=== PATIENT | female | born 1990 | race Caucasian/White ===

== ENCOUNTER 2021-04-30 17:17 | Emergency (ER) | payer MEDICAID ==
[~2021-04-30] VITALS: Ht 170.2 cm; Wt 122.0 kg
[~2021-04-30 17:17] MED LIST: IBUP-1984 PO
[2021-04-30 17:29] VITALS: BP 163/112
[2021-04-30 18:04] LABS: CLARITY,URINE CLOUDY (Clear); COLOR,URINE YELLOW (Yellow); GLUCOSE, URINE NEGATIVE (Neg); KETONES,URINE 40 mg/dl (Neg); LEUKOCYTE ESTERASE ,URINE SMALL (Neg); NITRITES, URINE NEGATIVE (Neg); OCCULT BLOOD,URINE LARGE (Neg); PROTEIN,URINE TRACE mg/dl (Neg); UROBILINOGEN,URINE 0.2 E.U/dL (0.2-1.0)
[2021-04-30 18:04] LABS: BASOPHILS # (AUTO) 0.1 X10'3 (0-0.2); BASOPHILS % (AUTO) 0.5 % (0-1); EOSINOPHILS # (AUTO) 0.4 X10'3 (0-0.9); HEMATOCRIT 41.2 % (35.0-45.0); HEMOGLOBIN 13.2 g/dl (12.0-16.0); LYMPHOCYTES % (AUTO) 27.3 % (21-51); MEAN CORPUSCULAR HEMOGLOBIN 26.4 PG (27.0-31.0); MEAN CORPUSCULAR HGB CONC 32.2 g/dL (33.0-36.5); MEAN CORPUSCULAR VOLUME 81.9 FL (78-98); MEAN PLATELET VOLUME 8.5 FL (7.4-10.4); MONOCYTES # (AUTO) 0.9 X10'3 (0-0.9); MONOCYTES % (AUTO) 6.5 % (2-12); NEUTROPHILS # (AUTO) 9.2 X10'3 (1.8-7.7); NEUTROPHILS % (AUTO) 62.7 % (42-75); PLATELET COUNT 353 X10'3 (140-440); RED BLOOD COUNT 5.02 X10'6 (4.20-5.60); RED CELL DISTRIBUTION WIDTH 15.1 % (11.5-14.5); WHITE BLOOD COUNT 14.6 X10'3 (4.5-11.0)
[2021-04-30 18:08] LABS: UA COLLECTION TYPE CLN CATCH MIDSTREAM; URINE HCG NEGATIVE (NEG)
[2021-04-30 18:17] LABS: ALANINE AMINOTRANSFERASE 104 U/L (12-78); ALBUMIN 4.4 G/DL (3.4-5.0); ALBUMIN/GLOBULIN RATIO 1.1 (1.1-1.5); ALKALINE PHOSPHATASE 111 IU/L (46-116); ANION GAP 13 (8-16); ASPARTATE AMINO TRANSFERASE 75 U/L (10-37); BILIRUBIN,TOTAL 0.6 MG/DL (0.1-1.0); BLOOD UREA NITROGEN 15 MG/DL (7-18); BUN/CREATININE RATIO 15.8 (6.6-38.0); CALCIUM 9.3 MG/DL (8.5-10.1); CHLORIDE 104 MMOL/L (99-107); CREATININE 0.95 MG/DL (0.40-0.90); GLUCOSE 94 MG/DL (70-104); LIPASE 78 U/L (73-393); POTASSIUM 3.6 MMOL/L (3.5-5.1); SODIUM 138 MMOL/L (135-145); TOTAL CARBON DIOXIDE 21.1 MMOL/L (24-32); TOTAL PROTEIN 8.4 G/DL (6.4-8.2); eGFR 68 ML/MIN
[2021-04-30 18:57] LABS: BACTERIA,URINE 2+ /HPF (Neg); MUCUS STRANDS FEW /LPF (Neg); RBC,URINE 20-50 /HPF (0-2); SQUAMOUS EPITHELIAL CELL,UR FEW /LPF (FEW); WBC,URINE 50-100 /HPF (0-4)
[2021-04-30] MEDS ORDERED: ondansetron 4mg rapidly disintigrating tab PO ONE (19:20)
[2021-04-30] MEDS ORDERED: ketorolac trometh. 30mg/ml inj. IM ONE (19:20)
[2021-04-30] MEDS ORDERED: cephalexin 250mg capsule PO ONE (20:25)
[2021-04-30] MEDS ORDERED: CEPH-585 PO (20:25)
[2021-04-30] MEDS ORDERED: HYDR-3972 PO (20:25)
== END 2021-04-30 20:47 | disposition home or self-care (01) ==
LOC: ER 17:18
DX: N10 Acute pyelonephritis (principal); R19.7 Diarrhea, unspecified; Z90.710 Acquired absence of both cervix and uterus; Z90.49 Acquired absence of other specified parts of digestive tract; Z87.442 Personal history of urinary calculi; Z91.040 Latex allergy status; Z88.8 Allergy status to other drugs, medicaments and biological substances; Z79.899 Other long term (current) drug therapy
CPT/HCPCS: 36415; 74176; 80053; 81001; 81025; 83690; 85025; 87077; 87088; 87186; 96372; 99284; J1885

== ENCOUNTER 2021-11-12 12:09 | Emergency (ER) | payer MEDICAID ==
[~2021-11-12] VITALS: Ht 170.2 cm; Wt 125.0 kg
[~2021-11-12 12:09] MED LIST changes: +CEPH-585 PO
[2021-11-12 13:59] LABS: BASOPHILS # (AUTO) 0.1 X10'3 (0-0.2); BASOPHILS % (AUTO) 0.7 % (0-1); EOSINOPHILS # (AUTO) 0.8 X10'3 (0-0.9); EOSINOPHILS % (AUTO) 7.2 % (0-6); HEMATOCRIT 39.2 % (35.0-45.0); HEMOGLOBIN 12.5 g/dl (12.0-16.0); LYMPHOCYTES # (AUTO) 3.3 X10'3 (1.1-4.8); LYMPHOCYTES % (AUTO) 29.3 % (21-51); MEAN CORPUSCULAR HEMOGLOBIN 25.7 PG (27.0-31.0); MEAN CORPUSCULAR VOLUME 80.3 FL (78-98); MONOCYTES # (AUTO) 0.9 X10'3 (0-0.9); MONOCYTES % (AUTO) 7.8 % (2-12); NEUTROPHILS # (AUTO) 6.3 X10'3 (1.8-7.7); PLATELET COUNT 284 X10'3 (140-440); RED BLOOD COUNT 4.89 X10'6 (4.20-5.60); RED CELL DISTRIBUTION WIDTH 15.3 % (11.5-14.5); WHITE BLOOD COUNT 11.4 X10'3 (4.5-11.0)
[2021-11-12 14:22] LABS: ALANINE AMINOTRANSFERASE 114 U/L (12-78); ALBUMIN 4.1 G/DL (3.4-5.0); ALKALINE PHOSPHATASE 87 IU/L (46-116); ANION GAP 12 (8-16); ASPARTATE AMINO TRANSFERASE 67 U/L (10-37); BILIRUBIN,TOTAL 0.3 MG/DL (0.1-1.0); BLOOD UREA NITROGEN 10 MG/DL (7-18); BUN/CREATININE RATIO 14.3 (6.6-38.0); CALCIUM 9.1 MG/DL (8.5-10.1); CHLORIDE 105 MMOL/L (99-107); GLUCOSE 84 MG/DL (70-104); LIPASE 80 U/L (73-393); MAGNESIUM 2.2 MG/DL (1.5-2.4); POTASSIUM 4.1 MMOL/L (3.5-5.1); SODIUM 143 MMOL/L (135-145); TOTAL CARBON DIOXIDE 25.7 MMOL/L (24-32); TOTAL PROTEIN 8.1 G/DL (6.4-8.2); eGFR > 90 ML/MIN
[2021-11-12 15:02] LABS: CLARITY,URINE CLOUDY (Clear); COLOR,URINE YELLOW (Yellow); GLUCOSE, URINE NEGATIVE (Neg); KETONES,URINE NEGATIVE (Neg); LEUKOCYTE ESTERASE ,URINE SMALL (Neg); NITRITES, URINE POSITIVE (Neg); OCCULT BLOOD,URINE TRACE-INTACT (Neg); PROTEIN,URINE NEGATIVE (Neg); UROBILINOGEN,URINE 0.2 E.U/dL (0.2-1.0)
[2021-11-12] MEDS ORDERED: iohexol 300mg/ml 100ml inj. ONE (15:08)
[2021-11-12 15:15] LABS: UA COLLECTION TYPE NON-SPECIFIED
[2021-11-12 15:16] LABS: MUCUS STRANDS MANY /LPF (Neg); SQUAMOUS EPITHELIAL CELL,UR MANY /LPF (FEW)
[2021-11-12 15:17] LABS: BACTERIA,URINE 3+ /HPF (Neg); RBC,URINE 0-2 /HPF (0-2); WBC,URINE TNTC /HPF (0-4)
[2021-11-12] MEDS ORDERED: DIF150T PO ×4 (17:16→17:35)
[2021-11-12] MEDS ORDERED: NITR100C6 PO ×4 (17:16→17:35)
[2021-11-12 17:33] VITALS: BP 135/87
== END 2021-11-12 17:34 | disposition home or self-care (01) ==
LOC: ER 12:09
DX: N39.0 Urinary tract infection, site not specified (principal); K92.1 Melena; R10.31 Right lower quadrant pain; R19.7 Diarrhea, unspecified; Z87.442 Personal history of urinary calculi; Z87.440 Personal history of urinary (tract) infections; Z90.49 Acquired absence of other specified parts of digestive tract; Z90.710 Acquired absence of both cervix and uterus; Z88.5 Allergy status to narcotic agent; Z91.040 Latex allergy status; Z79.899 Other long term (current) drug therapy
CPT/HCPCS: 36415; 74177; 80053; 81001; 83690; 83735; 85025; 99285; Q9967

== ENCOUNTER 2023-01-18 09:35 | Emergency (ER) | payer BC, MEDICAID ==
[~2023-01-18] VITALS: Ht 170.2 cm; Wt 113.6 kg
[~2023-01-18 09:35] MED LIST changes: -CEPH-585 PO; +NITR100C6 PO
[2023-01-18 10:03] LABS: BASOPHILS # (AUTO) 0.1 X10'3 (0-0.2); BASOPHILS % (AUTO) 0.3 % (0-1); EOSINOPHILS # (AUTO) 0.1 X10'3 (0-0.9); EOSINOPHILS % (AUTO) 0.5 % (0-6); HEMATOCRIT 43.6 % (35.0-45.0); LYMPHOCYTES % (AUTO) 10.8 % (21-51); MEAN CORPUSCULAR HGB CONC 32.1 g/dL (33.0-36.5); MEAN CORPUSCULAR VOLUME 80.8 FL (78-98); MEAN PLATELET VOLUME 8.7 FL (7.4-10.4); MONOCYTES # (AUTO) 1.9 X10'3 (0-0.9); MONOCYTES % (AUTO) 10.2 % (2-12); NEUTROPHILS # (AUTO) 14.8 X10'3 (1.8-7.7); NEUTROPHILS % (AUTO) 78.2 % (42-75); PLATELET COUNT 337 X10'3 (140-440); RED CELL DISTRIBUTION WIDTH 16.4 % (11.5-14.5); WHITE BLOOD COUNT 18.9 X10'3 (4.5-11.0)
[2023-01-18 10:17] LABS: ALANINE AMINOTRANSFERASE 60 U/L (12-78); ALBUMIN 3.9 G/DL (3.4-5.0); ALBUMIN/GLOBULIN RATIO 0.8 (1.1-1.5); ALKALINE PHOSPHATASE 102 IU/L (46-116); ANION GAP 11 (8-16); ASPARTATE AMINO TRANSFERASE 28 U/L (10-37); BILIRUBIN,TOTAL 0.5 MG/DL (0.1-1.0); BLOOD UREA NITROGEN 11 MG/DL (7-18); BUN/CREATININE RATIO 10.5 (10.0-20.0); CALCIUM 9.6 MG/DL (8.5-10.1); CHLORIDE 104 MMOL/L (99-107); CREATININE 1.05 MG/DL (0.40-0.90); GLUCOSE 117 MG/DL (70-104); LIPASE < 50 U/L (73-393); POTASSIUM 3.2 MMOL/L (3.5-5.1); SODIUM 138 MMOL/L (135-145); TOTAL CARBON DIOXIDE 23.4 MMOL/L (24-32); TOTAL PROTEIN 8.5 G/DL (6.4-8.2); eGFR 60 ML/MIN
[2023-01-18 10:19] LABS: URINE HCG NEGATIVE (NEG)
[2023-01-18] MEDS ORDERED: normal saline 1000ML IV soln IVB ONE (11:15)
[2023-01-18] MEDS ORDERED: potassium Cl 20 mEq SR tablet PO ONE (11:15)
[2023-01-18 13:26] VITALS: BP 152/104
== END 2023-01-18 13:30 | disposition home or self-care (01) ==
LOC: ER 09:35
DX: J11.1 Influenza due to unidentified influenza virus with other respiratory manifestations (principal); R11.2 Nausea with vomiting, unspecified; Z88.5 Allergy status to narcotic agent; Z91.040 Latex allergy status; Z90.49 Acquired absence of other specified parts of digestive tract; Z90.710 Acquired absence of both cervix and uterus
CPT/HCPCS: 36415; 80053; 81025; 83690; 85025; 96360; 99283; J7030

== ENCOUNTER 2024-07-17 08:51 | Emergency (ER) | payer BC, MEDICAID ==
[~2024-07-17] VITALS: Ht 170.2 cm; Wt 87.7 kg
[2024-07-17 09:40] LABS: BASOPHILS # (AUTO) 0.1 X10'3 (0-0.2); BASOPHILS % (AUTO) 0.9 % (0-1); EOSINOPHILS # (AUTO) 0.8 X10'3 (0-0.9); EOSINOPHILS % (AUTO) 6.5 % (0-6); HEMATOCRIT 40.4 % (35.0-45.0); HEMOGLOBIN 13.1 g/dl (12.0-16.0); LYMPHOCYTES # (AUTO) 2.3 X10'3 (1.1-4.8); MEAN CORPUSCULAR HEMOGLOBIN 28.4 PG (27.0-31.0); MEAN CORPUSCULAR HGB CONC 32.5 g/dL (33.0-36.5); MEAN CORPUSCULAR VOLUME 87.4 FL (78-98); MEAN PLATELET VOLUME 8.4 FL (7.4-10.4); MONOCYTES # (AUTO) 0.8 X10'3 (0-0.9); MONOCYTES % (AUTO) 6.5 % (2-12); NEUTROPHILS # (AUTO) 8.3 X10'3 (1.8-7.7); NEUTROPHILS % (AUTO) 67.1 % (42-75); PLATELET COUNT 269 X10'3 (140-440); RED BLOOD COUNT 4.62 X10'6 (4.20-5.60); WHITE BLOOD COUNT 12.4 X10'3 (4.5-11.0)
[2024-07-17 10:00] LABS: URINE HCG NEGATIVE (NEG)
[2024-07-17 10:06] LABS: BILIRUBIN,URINE NEGATIVE (Neg); CLARITY,URINE CLEAR (Clear); COLOR,URINE YELLOW (Yellow); GLUCOSE, URINE NEGATIVE (Neg); KETONES,URINE NEGATIVE (Neg); LEUKOCYTE ESTERASE ,URINE NEGATIVE (Neg); NITRITES, URINE NEGATIVE (Neg); OCCULT BLOOD,URINE TRACE-INTACT (Neg); PROTEIN,URINE NEGATIVE (Neg); UROBILINOGEN,URINE 0.2 E.U/dL (0.2-1.0)
[2024-07-17 10:07] LABS: ALANINE AMINOTRANSFERASE 17 U/L (12-78); ALBUMIN 3.8 G/DL (3.4-5.0); ALKALINE PHOSPHATASE 86 IU/L (46-116); ANION GAP 11 (8-16); ASPARTATE AMINO TRANSFERASE 13 U/L (10-37); BILIRUBIN,TOTAL 0.5 MG/DL (0.1-1.0); BLOOD UREA NITROGEN 9 MG/DL (7-18); BUN/CREATININE RATIO 12.5 (10.0-20.0); CALCIUM 8.7 MG/DL (8.5-10.1); CHLORIDE 103 MMOL/L (99-107); CREATININE 0.72 MG/DL (0.40-0.90); GLUCOSE 75 MG/DL (70-104); LIPASE 42 U/L (16-77); POTASSIUM 3.5 MMOL/L (3.5-5.1); SODIUM 138 MMOL/L (135-145); TOTAL CARBON DIOXIDE 24.3 MMOL/L (24-32); TOTAL PROTEIN 7.6 G/DL (6.4-8.2); eCRCL 105 ML/MIN; eGFR > 90 ML/MIN
[2024-07-17 10:24] LABS: UA COLLECTION TYPE CLN CATCH MIDSTREAM
[2024-07-17 10:32] LABS: BACTERIA,URINE FEW /HPF (Neg); RBC,URINE 0-2 /HPF (0-2); SQUAMOUS EPITHELIAL CELL,UR NONE SEEN /LPF (FEW); WBC,URINE 0-4 /HPF (0-4)
[2024-07-17] MEDS: ketorolac trometh 30MG/ML vial 30 MG/ML VIAL IV ONE (10:41)
[2024-07-17] MEDS: normal saline 1000ml 1,000 ML IV ONE (10:41)
[2024-07-17] MEDS: ondansetron/PF 4mg/2ml inj IV ONE (10:41)
[2024-07-17 11:06] VITALS: BP 121/83; PULSE 66; RESP 15; TEMP 98.4; O2SAT 99
== END 2024-07-17 11:08 | disposition home or self-care (01) ==
LOC: ER 08:51
DX: R10.84 Generalized abdominal pain (principal); Z87.442 Personal history of urinary calculi; Z90.49 Acquired absence of other specified parts of digestive tract; Z90.710 Acquired absence of both cervix and uterus; Z88.5 Allergy status to narcotic agent; Z91.040 Latex allergy status; Z79.899 Other long term (current) drug therapy
CPT/HCPCS: 36415; 74022; 80053; 81001; 81025; 83690; 85025; 96361; 96374; 96375; 99284; J1885; J2405; J7030

== ENCOUNTER 2024-08-03 15:40 | Outpatient (CLI) | payer BC, MEDICAID | END 2024-08-03 23:59 | disposition home or self-care (01) | LOC: MRI 15:40 | PROVIDERS: ATTEND Podiatrist Foot & Ankle Surgery | DX: M19.072 Primary osteoarthritis, left ankle and foot (principal); M72.2 Plantar fascial fibromatosis; M25.472 Effusion, left ankle; M25.375 Other instability, left foot; M25.572 Pain in left ankle and joints of left foot; G57.50 Tarsal tunnel syndrome, unspecified lower limb; M79.672 Pain in left foot | CPT/HCPCS: 73718; 73721 ==

== ENCOUNTER 2024-08-24 15:43 | Outpatient (CLI) | payer BC, MEDICAID ==
[2024-08-24 18:18] LABS: BASOPHILS # (AUTO) 0.1 X10'3 (0-0.2); BASOPHILS % (AUTO) 0.8 % (0-1); EOSINOPHILS # (AUTO) 0.2 X10'3 (0-0.9); EOSINOPHILS % (AUTO) 1.7 % (0-6); HEMATOCRIT 41.8 % (35.0-45.0); HEMOGLOBIN 13.4 g/dl (12.0-16.0); LYMPHOCYTES # (AUTO) 3.3 X10'3 (1.1-4.8); LYMPHOCYTES % (AUTO) 28.7 % (21-51); MEAN CORPUSCULAR HEMOGLOBIN 28.2 PG (27.0-31.0); MEAN CORPUSCULAR HGB CONC 32.1 g/dL (33.0-36.5); MEAN CORPUSCULAR VOLUME 87.9 FL (78-98); MEAN PLATELET VOLUME 9.4 FL (7.4-10.4); MONOCYTES # (AUTO) 0.7 X10'3 (0-0.9); MONOCYTES % (AUTO) 5.8 % (2-12); NEUTROPHILS # (AUTO) 7.3 X10'3 (1.8-7.7); PLATELET COUNT 328 X10'3 (140-440); RED BLOOD COUNT 4.76 X10'6 (4.20-5.60); RED CELL DISTRIBUTION WIDTH 13.4 % (11.5-14.5); WHITE BLOOD COUNT 11.6 X10'3 (4.5-11.0)
[2024-08-24 18:36] LABS: ALBUMIN 3.9 G/DL (3.4-5.0); ANION GAP 9 (8-16); BLOOD UREA NITROGEN 13 MG/DL (7-18); BUN/CREATININE RATIO 16.5 (10.0-20.0); C-REACTIVE PROTEIN 0.47 MG/DL (0.0-0.5); CHLORIDE 104 MMOL/L (99-107); CREATININE 0.79 MG/DL (0.40-0.90); GLUCOSE 73 MG/DL (70-104); SODIUM 140 MMOL/L (135-145); TOTAL CARBON DIOXIDE 26.8 MMOL/L (24-32); eGFR 82 ML/MIN
[2024-08-24 18:43] LABS: POTASSIUM 3.1 MMOL/L (3.5-5.1)
== END 2024-08-24 23:59 | disposition home or self-care (01) ==
LOC: RAD 15:43
PROVIDERS: ATTEND Podiatrist Foot & Ankle Surgery
DX: M19.072 Primary osteoarthritis, left ankle and foot (principal); M25.471 Effusion, right ankle; M25.472 Effusion, left ankle; M79.671 Pain in right foot; M79.672 Pain in left foot; M72.2 Plantar fascial fibromatosis; M79.89 Other specified soft tissue disorders; M25.375 Other instability, left foot; M25.572 Pain in left ankle and joints of left foot; M54.9 Dorsalgia, unspecified; M76.829 Posterior tibial tendinitis, unspecified leg; G57.50 Tarsal tunnel syndrome, unspecified lower limb
CPT/HCPCS: 36415; 80048; 82306; 85025; 85651; 86140

== ENCOUNTER 2024-10-02 14:08 | Outpatient (CLI) | payer BC, MEDICAID | END 2024-10-02 23:59 | disposition home or self-care (01) | LOC: RAD 14:08 | DX: N20.0 Calculus of kidney (principal); K44.9 Diaphragmatic hernia without obstruction or gangrene; K42.9 Umbilical hernia without obstruction or gangrene; R16.0 Hepatomegaly, not elsewhere classified; R10.2 Pelvic and perineal pain; R10.9 Unspecified abdominal pain; M47.816 Spondylosis without myelopathy or radiculopathy, lumbar region; Z87.440 Personal history of urinary (tract) infections; Z90.49 Acquired absence of other specified parts of digestive tract; Z90.710 Acquired absence of both cervix and uterus; Z98.890 Other specified postprocedural states | CPT/HCPCS: 74176 ==

== ENCOUNTER 2024-11-01 10:31 | Emergency (ER) | payer BC, MEDICAID ==
[~2024-11-01] VITALS: Ht 170.2 cm; Wt 90.9 kg
[2024-11-01 10:50] VITALS: BP 143/83; PULSE 75; RESP 18; TEMP 97.8; O2SAT 98
== END 2024-11-01 13:46 | disposition home or self-care (01) ==
LOC: ER 10:31
DX: M25.571 Pain in right ankle and joints of right foot (principal); Z88.5 Allergy status to narcotic agent; Z91.040 Latex allergy status; Z79.899 Other long term (current) drug therapy; Z90.710 Acquired absence of both cervix and uterus; Z87.442 Personal history of urinary calculi; Z90.49 Acquired absence of other specified parts of digestive tract
CPT/HCPCS: 29540; 73610; 99283

== ENCOUNTER 2024-12-28 06:19 | Day surgery (SDC) | payer BC, OTHER ==
[2024-12-22 10:36] LABS: BASOPHILS # (AUTO) 0.1 X10'3 (0-0.2); BASOPHILS % (AUTO) 0.7 % (0-1); EOSINOPHILS # (AUTO) 0.5 X10'3 (0-0.9); EOSINOPHILS % (AUTO) 4.9 % (0-6); LYMPHOCYTES # (AUTO) 2.7 X10'3 (1.1-4.8); LYMPHOCYTES % (AUTO) 27.6 % (21-51); MEAN CORPUSCULAR VOLUME 84.7 FL (78-98); MONOCYTES # (AUTO) 0.7 X10'3 (0-0.9); MONOCYTES % (AUTO) 7.5 % (2-12); NEUTROPHILS # (AUTO) 5.7 X10'3 (1.8-7.7); NEUTROPHILS % (AUTO) 59.3 % (42-75); PRE OP HEMATOCRIT 39.9 % (35.0-45.0); PRE OP HEMOGLOBIN 13.2 g/dL (12.0-16.0); PRE OP PLATELET COUNT 292 X10'3 (140-440); PRE OP WHITE BLOOD COUNT 9.7 10'3 (4.8-10.8); RED BLOOD COUNT 4.71 X10'6 (4.20-5.60)
[2024-12-22 10:46] LABS: BILIRUBIN,URINE NEGATIVE (Neg); CLARITY,URINE CLEAR (Clear); COLOR,URINE YELLOW (Yellow); GLUCOSE, URINE NEGATIVE (Neg); KETONES,URINE NEGATIVE (Neg); LEUKOCYTE ESTERASE ,URINE NEGATIVE (Neg); NITRITES, URINE NEGATIVE (Neg); OCCULT BLOOD,URINE NEGATIVE (Neg); PROTEIN,URINE NEGATIVE (Neg); UROBILINOGEN,URINE 0.2 E.U/dL (0.2-1.0)
[2024-12-22 10:58] LABS: UA COLLECTION TYPE NON-SPECIFIED
[2024-12-22 11:10] LABS: ALBUMIN 3.8 G/DL (3.4-5.0); ALBUMIN/GLOBULIN RATIO 1.2 (1.1-1.5); ALKALINE PHOSPHATASE 85 IU/L (46-116); BLOOD UREA NITROGEN 8 MG/DL (7-18); BUN/CREATININE RATIO 12.3 (10.0-20.0); CALCIUM 8.8 MG/DL (8.5-10.1); CHLORIDE 107 MMOL/L (99-107); CREATININE 0.65 MG/DL (0.40-0.90); PRE OP ALT 16 U/L (30-65); PRE OP ANION GAP 6 (8-16); PRE OP AST 13 U/L (10-37); PRE OP BILIRUB, TOTAL 0.4 MG/DL (0.0-1.0); PRE OP POTASSIUM 3.5 MMOL/L (3.4-5.1); PRE OP SODIUM 139 MMOL/L (135-145); TOTAL CARBON DIOXIDE 26.2 MMOL/L (24-32); eGFR > 90 ML/MIN
[2024-12-22 11:19] LABS: PRE OP GLUCOSE 42 MG/DL (70-104)
[2024-12-28] VITALS (10 sets, daily range): BP systolic 110–145; BP diastolic 74–96; PULSE 60–99; RESP 11–16; TEMP 97.8; O2SAT 98–100
[~2024-12-28] VITALS: Ht 170.2 cm; Wt 93.4 kg
[2024-12-28] MEDS: ceFAZolin 2gm in dextrose, iso 50 ML IV ONE (05:30)
[~2024-12-28 06:19] MED LIST changes: +CETI10CA PO; +ESOM40CA66 PO; +LORA10TA7 PO; +MULT-1085 PO; -NITR100C6 PO; +TRAZ150T78
[2024-12-28] MEDS ORDERED: bacitracin 15gm ointment TP ONE (07:11)
[2024-12-28] MEDS ORDERED: BUPIVAcaine 2.5mg/ml inj 50ml vial (contains preservative) ONE (07:11)
[2024-12-28] MEDS ORDERED: acetaminophen 1,000mg/100ml IV 100 ML IV PRN (07:45)
[2024-12-28] MEDS ORDERED: labetalol 20mg/4ml (5mg/ml) syringe IV PRN (07:45)
[2024-12-28] MEDS ORDERED: ringers solution, lacted 1,000 ML IV SCH (07:45)
[2024-12-28] MEDS ORDERED: ondansetron/PF 4mg/2ml inj IV PRN (07:45)
[2024-12-28] MEDS ORDERED: meperidine/PF 25mg/ml syringe IV PRN (07:45)
[2024-12-28] MEDS ORDERED: hydrALAZINE 20mg/ml inj. IV PRN (07:45)
[2024-12-28] MEDS ORDERED: proCHLORperazine 10 MG/2 ml inj IV PRN (07:45)
[2024-12-28] MEDS ORDERED: morphine 4 MG/ML inj SYRINge IV PRN (07:45)
[2024-12-28] MEDS ORDERED: HYDROmorphone/PF 0.2 MG/ML SYRINGE IV PRN ×2 (07:45)
[2024-12-28] MEDS: famotidine 20mg tablet PO ONE (07:50)
[2024-12-28] MEDS: ringers solution, lacted 1,000 ML IV SCH (07:51)
[2024-12-28] MEDS ORDERED: sevoflurane 250ml liquid IH ONE (08:56)
[2024-12-28] MEDS ORDERED: fentaNYL/PF 50MCG/1 ML 2ML syringe ONE (09:00)
[2024-12-28] MEDS ORDERED: propofol inj 20 ML IV ONE (09:24)
[2024-12-28] MEDS ORDERED: ROPIVAcaine 0.5% (5mg/ml) 30ml vial ONE (09:24)
[2024-12-28] MEDS ORDERED: dexamethasone sod phosphate 4mg/ml inj. ONE ×2 (09:24→09:25)
[2024-12-28] MEDS ORDERED: LIDOcaine 2% (20mg/ml) 5ml vial ONE (09:24)
[2024-12-28] MEDS ORDERED: midazolam 1 mg/ML 2ml injection ONE (09:24)
[2024-12-28] MEDS ORDERED: 0.9 % SODIUM CHLORIDE 10 ML VIAL ONE (09:24)
[2024-12-28] MEDS ORDERED: ondansetron/PF 4mg/2ml inj ONE (09:25)
[2024-12-28] MEDS: bacitracin 15gm ointment TP ONE (09:37)
[2024-12-28] MEDS: morphine 2 MG/ML inj. syringe IV PRN (12:27)
[2024-12-28] MEDS: HYDROcodone/acetaminophen 10/325mg tab PO ONE (12:57)
--- NOTE | 2025-01-05 15:07 | RADIOLOGY REPORT ---
C-ARM FLUOROSCOPY: PROCEDURE: post op FLUOROSCOPY TIME: Calcaneal FINDINGS: Spot intraoperative C arm radiographs demonstrating Calcaneal. IMPRESSION: Please refer to surgical report for detailed findings.
== END 2024-12-28 13:17 | disposition home or self-care (01) ==
LOC: PRE-OP 06:19
PROVIDERS: ATTEND Podiatrist Foot & Ankle Surgery
DX: M19.072 Primary osteoarthritis, left ankle and foot (principal); K21.9 Gastro-esophageal reflux disease without esophagitis; E66.9 Obesity, unspecified; G89.18 Other acute postprocedural pain; Z79.899 Other long term (current) drug therapy; Z90.49 Acquired absence of other specified parts of digestive tract; Z90.710 Acquired absence of both cervix and uterus; Z79.82 Long term (current) use of aspirin; Z98.890 Other specified postprocedural states; Z68.31 Body mass index [BMI] 31.0-31.9, adult; Z72.89 Other problems related to lifestyle; Z87.891 Personal history of nicotine dependence
CPT/HCPCS: 20902; 27687; 28730; 36415; 64445; 64447; 73620; 80053; 81003; 82948; 85025; A6223; C1713; J0690; J0735; J1100; J2003; J2250; J2270; J2405; J2704; J2795; J3010; J7030; J7120; Z7506; Z7508; Z7512; 76000; A4215; A4618; A6449; A7000; J3490

== ENCOUNTER 2025-01-05 09:53 | Emergency (ER) | payer BC, OTHER ==
[~2025-01-05] VITALS: Ht 170.2 cm; Wt 91.4 kg
[2025-01-05 10:04] VITALS: BP 145/92; PULSE 103; TEMP 98.6; O2SAT 99
[2025-01-05 11:07] VITALS: RESP 16
--- NOTE | 2025-01-05 11:17 | RADIOLOGY REPORT ---
DI FOOT, COMPLETE (3VW MIN), INDICATION: left foot pain s/p surgery a week ago, pain occurred after ground level fal TECHNICAL DATA: Frontal, oblique and lateral views were obtained of the left foot. COMPARISON: None FINDINGS: External fixation hardware noted over the lateral foot. There is plate and screw fixation of the 2nd and 3rd tarsometatarsal joints. Alignment is anatomic. No displaced osseous abnormality demonstrate d. IMPRESSION: 1. Postsurgical changes in the foot as described.
--- NOTE | 2025-01-05 11:34 | Physician Documentation ---
History of Present Illness ~ Chief Complaint: Foot pain Stated Complaint: FOOT PAIN Time Seen by MD: 10:24 Primary Medical Doctor: ZHANG ELISE Source: patient Mode of Arrival: POV Exam Limitations: no limitations HPI 34-year-old female with chief complaint left foot and calf pain that worsened after she had a ground level fall when she was trying to self cath herself. Patient states she has not neurogenic bladder and thus catheterize herself regularly but is more unsteady right now because she had surgery on her left foot a week ago by Dr. Dahl and states that she is nonweightbearing on her left leg. States the pain increased after this ground level fall denies any redness of her calf. Denies chest pain, shortness of breath, fever, chills. States that she contacted her orthopedist who changed her pain medication from [place] to Percocet. She last took Percocet at 5:00 a.m. this morning. She did take Motrin last night. She states she is not interested in getting any pain medication here in the ER but just wanted to get an x-ray to make sure that the hardware did not move. Tetanus witin 5 years: No (UNKNOWN) Medication Reconciliation Allergies: Coded Allergies: codeine (Verified Allergy, Unknown, ORBITAL EDEMA, 11/01/24) latex (Verified Allergy, Unknown, ECZEMA rash, 12/27/24) adhesive (Verified Adverse Reaction, Unknown, fry skin/rash, 12/27/24) Scheduled Cetirizine Hcl (Zyrtec), 1 CAP PO DAILY, (Reported) Esomeprazole Magnesium (Esomeprazole Magnesium), 1 CAP PO DAILY, (Reported) Loratadine (Loratadine), 1 TAB PO DAILY, (Reported) Multivitamin (Multi Vitamin Daily), 1 TAB PO DAILY, (Reported) Scheduled PRN Ibuprofen* (Motrin*), 200 MG PO Q8H PRN for P, (Reported) Miscellaneous Medications Trazodone Hcl (Trazodone Hcl), (Reported) Past Medical History Past Medical History: *GI/HEPATOBILIARY*, Hemorrhoids, Kidney Stones, UTI Past Surgical History: cholecystectomy, hysterectomy Alcohol Use: Sober Drug Use: none Lives In: Home Review of Systems All Other Systems at this time: Reviewed and Negative Physical Exam Vital Signs: Temperature: 98.6, Source: Temporal, Heart Rate: 103, Respiratory Rate: 16, BP: 145/92, Pulse Oximetry: 99, Weight: 91.400 Physical Exam General Appearance: Alert, WD/WN. NAD. HEENT: NCAT, PERRL, EOMI. Neck: Supple, trachea midline. Cardiovascular: RRR. No m/r/g. Lungs: CTAB. Breathing unlabored Extremities: Left lower leg is in a short-leg splint dressing is clean and dry, cap refill at toes is less than 2 seconds. No tenderness with palpation of calf, since short-leg splint and dressing was placed in OR I did not remove. Skin: Warm/dry, normal color Neurological: Alert and oriented x4, ambulating with crutches. Psychiatric: Affect congruent with mood. Procedures Procedures DI FOOT, COMPLETE (3VW MIN), INDICATION: left foot pain s/p surgery a week ago, pain occurred after ground level fal TECHNICAL DATA: Frontal, oblique and lateral views were obtained of the left foot. COMPARISON: None FINDINGS: External fixation hardware noted over the lateral foot. There is plate and screw fixation of the 2nd and 3rd tarsometatarsal joints. Alignment is anatomic. No displaced osseous abnormality demonstrated. IMPRESSION: 1. Postsurgical changes in the foot as described. Progress Results/Orders Results/Orders Orders - GRETCHEN HANKS Foot, Complete (3vw Min) (01/05/25 10:31) Completed Orders - GRETCHEN HANKS Foot, Complete (3vw Min) (01/05/25 10:31) Vital Signs 01/05/25 01/05/25 10:04 11:07 Temp 98.6 Pulse 103 Resp 17 16 B/P (MAP) 145/92 Pulse Ox 99 Medical Decision Making Foot Diff Dx:Considerations: Include: Abrasion, Arthritis, Cellulitis, Cont usion, Dislocation, DJD, Fracture-metatarsal, Fracture-phalynx, Fracture-tarsal, Gout, Hematoma, Ingrown toenail, Laceration, Malunion, Neurovascular injury, Open fracture, Paronychia, Puncture, Rheumatoid, Sprain, Septic, Subungual hematoma, Ulcer, Other Additional Comment DVT considered however patient's pain worsened after she had a ground level fall in his thus directly related to the fall so ultrasound was not performed. X-ray did not show any movement of the hardware or any acute findings. Patient denies any symptoms that would indicate infectious etiology. Departure Time of Disposition: 11:32 Disposition: 01 HOME / SELF CARE / HOMELESS Impression: Primary Impression: Foot pain Qualified Codes: M79.672 - Pain in left foot Condition: Stable Discharge Instructions: General Discharge Instructions Additional Instructions: If fever, chills, increasing pain, pain that is spreading up leg into groin return to the ER right away. Continue percocet. Referrals: NO PRIMARY CARE PROVIDER (PCP) Education Educated: Patient Educated regarding: diagnosis, treatment, need for follow up Signature Scribe Signature: x Attestation: GRETCHEN Liu January 05, 2025 11:34
== END 2025-01-05 11:55 | disposition home or self-care (01) ==
LOC: ER 09:54
DX: M79.672 Pain in left foot (principal); Z88.5 Allergy status to narcotic agent; Z98.890 Other specified postprocedural states; Z90.710 Acquired absence of both cervix and uterus; Z90.49 Acquired absence of other specified parts of digestive tract; Z91.040 Latex allergy status; Z91.048 Other nonmedicinal substance allergy status; Z79.899 Other long term (current) drug therapy; Z87.442 Personal history of urinary calculi; W18.30XA Fall on same level, unspecified, initial encounter; Y93.89 Activity, other specified; Y92.89 Other specified places as the place of occurrence of the external cause; Y99.8 Other external cause status
CPT/HCPCS: 73630; 99284

== ENCOUNTER 2025-01-16 15:40 | Emergency (ER) | payer BC, OTHER ==
[~2025-01-16] VITALS: Ht 170.2 cm; Wt 95.5 kg
--- NOTE | 2025-01-16 15:53 | Physician Documentation ---
History of Present Illness ~ Chief Complaint: Leg Pain Stated Complaint: POSSIBLE DVT Time Seen by MD: 18:21 [facility] Female presents to ED with complaint of left leg pain. States she had a recent surgical procedure on her ankle which was related to I was chronic diagnosis of arthritis. States that she was seen by her physician and was sent here to the ED for a DVT rule out. Denies taking control denies being a cigarette smoker denies any shortness of breath or chest pain Day of Onset: January 16, 2025 Tetanus witin 5 years: No (UNKNOWN) Medication Reconciliation Allergies: Coded Allergies: codeine (Verified Allergy, Unknown, ORBITAL EDEMA, 11/01/24) latex (Verified Allergy, Unknown, ECZEMA rash, 12/27/24) adhesive (Verified Adverse Reaction, Unknown, fry skin/rash, 12/27/24) Scheduled Cetirizine Hcl (Zyrtec), 1 CAP PO DAILY, (Reported) Esomeprazole Magnesium (Esomeprazole Magnesium), 1 CAP PO DAILY, (Reported) Loratadine (Loratadine), 1 TAB PO DAILY, (Reported) Multivitamin (Multi Vitamin Daily), 1 TAB PO DAILY, (Reported) Scheduled PRN Ibuprofen* (Motrin*), 200 MG PO Q8H PRN for P, (Reported) Miscellaneous Medications Trazodone Hcl (Trazodone Hcl), (Reported) Past Medical History Past Medical History: *GI/HEPATOBILIARY*, Hemorrhoids, Kidney Stones, UTI Past Surgical History: cholecystectomy, hysterectomy Alcohol Use: Sober Drug Use: none Lives In: Home Physical Exam Vital Signs: Temperature: 98.2, Heart Rate: 87, Respiratory Rate: 15, BP: 140/86, Pulse Oximetry: 99, Weight: 95.450 Oxygen Flow Rate: 0 Physical Exam General: Alert, no apparent distress. Extremities: Postsurgical cast in place on the right lower extremity with a surgical hardware in place., negative Homans sign Neurologic: Oriented x4. Psychiatric: Normal mood and affect. Skin: Normal color, warm and dry. No edema, no ecchymosis. Progress Results/Orders Results/Orders Orders - GERMAN THOMAS PRESSURE TESTING TECHNICIAN Vl Venous (01/16/25 15:47) Completed Orders - GERMAN THOMAS PRESSURE TESTING TECHNICIAN Vl Venous (01/16/25 15:47) Vital Signs 01/16/25 01/16/25 15:43 17:55 Temp 98.2 98.2 Pulse 87 79 Resp 15 16 B/P (MAP) 140/86 121/83 (96) Pulse Ox 99 98 O2 Flow Rate 0 0 Medical Decision Making Findings Was evaluated via vascular ultrasound to rule out DVT. technician automatic indicated there was no concerns of a thrombus and flow was strong.. Going to discharge patient Departure Disposition: HOME / SELF CARE / HOMELESS Impression: Primary Impression: Leg pain Condition: Stable Discharge Instructions: Deep Vein Thrombosis Additional Instructions: Discussed he did not show any signs of DVT in your left lower extremity. Please follow up with her orthopedic surgeon for further evaluation Referrals: NO PRIMARY CARE PROVIDER (PCP) Signature Scribe Signature: g Attestation: The note accurately reflects work and decisions made by me.German Tellez NP 01/16/25 23:50 GERMAN THOMAS NP January 16, 2025 15:53
[2025-01-16 17:55] VITALS: BP 121/83; PULSE 79; RESP 16; TEMP 98.2; O2SAT 98
--- NOTE | 2025-01-16 18:51 | VASCULAR REPORT ---
Left lower extremity venous duplex Clinical History: Pain Comparison: None Technique: Duplex Doppler evaluation of the deep venous system of the left lower extremity from the common femor al vein to the popliteal vein including color Doppler and spectral/pulsed waveform analysis was perfo rmed. Findings: The common femoral vein demonstrates appropriate compressibility and waveform variability . There is compressibility/patency of the great saphenous vein at the proximal thigh . The femoral vein demonstrates appropriate compressibility and waveform variability . The deep femoral vein demonstrates appropriate compressibility and waveform variability . The popliteal vein demonstrates appropriate compressibility and waveform variability . There is normal compressibility at the tibioperoneal trunk. Impression: No left femoropopliteal venous thrombosis. Contralateral common femoral vein is patent.
== END 2025-01-16 18:33 | disposition home or self-care (01) ==
LOC: ER 15:41
DX: M79.605 Pain in left leg (principal); Z88.5 Allergy status to narcotic agent; Z90.710 Acquired absence of both cervix and uterus; Z90.49 Acquired absence of other specified parts of digestive tract; Z79.899 Other long term (current) drug therapy; Z91.040 Latex allergy status; Z91.048 Other nonmedicinal substance allergy status; Z87.442 Personal history of urinary calculi
CPT/HCPCS: 93971; 99284

== ENCOUNTER 2025-03-15 05:35 | Day surgery (SDC) | payer BC, MEDICAID ==
[2025-03-08 12:12] LABS: LEUKOCYTE ESTERASE ,URINE NEGATIVE (Neg); NITRITES, URINE NEGATIVE (Neg); OCCULT BLOOD,URINE NEGATIVE (Neg)
[2025-03-08 12:14] LABS: MEAN PLATELET VOLUME 9.0 FL (7.4-10.4); PRE OP HEMATOCRIT 41.9 % (35.0-45.0); PRE OP HEMOGLOBIN 14.0 g/dL (12.0-16.0); PRE OP PLATELET COUNT 279 X10'3 (140-440); PRE OP WHITE BLOOD COUNT 8.3 10'3 (4.8-10.8); RED CELL DISTRIBUTION WIDTH 13.4 % (11.5-14.5)
[2025-03-08 12:17] LABS: UA COLLECTION TYPE CLN CATCH MIDSTREAM
[2025-03-08 12:19] LABS: CAL OXALATE CRYSTALS 2+ /HPF (NEGATIVE)
[2025-03-08 12:20] LABS: MUCUS STRANDS FEW /LPF (Neg); SQUAMOUS EPITHELIAL CELL,UR FEW /LPF (FEW)
[2025-03-08 12:48] LABS: CREATININE 0.83 MG/DL (0.40-0.90); PRE OP ALT 25 U/L (30-65); PRE OP ANION GAP 8 (8-16); PRE OP AST 15 U/L (10-37); PRE OP BILIRUB, TOTAL 0.5 MG/DL (0.0-1.0); PRE OP GLUCOSE 94 MG/DL (70-104); PRE OP SODIUM 137 MMOL/L (135-145); TOTAL CARBON DIOXIDE 26.1 MMOL/L (24-32); eGFR 78 ML/MIN
[2025-03-08 13:34] LABS: PRE OP POTASSIUM 3.2 MMOL/L (3.4-5.1)
[~2025-03-15] VITALS: Ht 170.2 cm; Wt 90.1 kg
[~2025-03-15 05:35] MED LIST changes: +GABA300C PO; +HYDR-3972 PO; -IBUP-1984 PO; +TIRZ2.5P3 SQ; -TRAZ150T78; +TRAZ150T78 PO; +ceFAZolin 2gm/dext,iso 50mL 50 ML IV ONE
[2025-03-15 05:50] VITALS: BP 112/74; PULSE 63; RESP 16; TEMP 98; O2SAT 99
[2025-03-15] MEDS: ringers solution, lacted 1,000 ML IV SCH (06:06)
[2025-03-15 06:37] LABS: ISTAT ANION GAP 16.0 (8-12); ISTAT BUN 8.0 mg/dL (7-18); ISTAT CL 105.0 mmol/L (99-107); ISTAT CREATININE 0.8 mg/dL (0.6-1.1); ISTAT GLUCOSE 83.0 mg/dL (70-104); ISTAT HGB 13.9 g/dl (12.0-16.0); ISTAT Hct 41.0 %PCV (35-45); ISTAT IONIZED CALCIUM 1.3 mmol/L (1.03-1.32); ISTAT K 3.1 mmol/L (3.5-5.1); ISTAT NA 143.0 mmol/L (135-145); ISTAT TOTAL CO2 22.0 mmol/L (24-32); ISTAT eGFR 81.0 ML/MIN; POC BUN/CREATININE RATIO 10.0 (6.6-38.0)
[2025-03-15] MEDS ORDERED: BUPIVAcaine 2.5mg/ml inj 50ml vial (contains preservative) ONE (06:42)
[2025-03-15] MEDS ORDERED: bacitracin 15gm ointment TP ONE (06:42)
[2025-03-15] MEDS ORDERED: fentaNYL/PF 50MCG/1 ML 2ML syringe ONE (07:12)
[2025-03-15] MEDS ORDERED: midazolam 1 mg/ML 2ml injection ONE (07:13)
[2025-03-15] MEDS ORDERED: dexamethasone sod phosphate 4mg/ml inj. ONE (07:28)
[2025-03-15] MEDS ORDERED: propofol inj 20 ML IV ONE (07:28)
[2025-03-15] MEDS ORDERED: LIDOcaine 2% (20mg/ml) 5ml vial ONE (07:29)
[2025-03-15] MEDS ORDERED: ondansetron/PF 4mg/2ml inj ONE (07:29)
[2025-03-15] MEDS: BUPIVAcaine/PF 2.5 mg/ml (0.25%) 30ml vial IJ ONE (07:30)
[2025-03-15] MEDS ORDERED: ketorolac trometh 30MG/ML vial 30 MG/ML VIAL ONE (07:43)
[2025-03-15 08:00] VITALS: BP 122/77; PULSE 59; RESP 14; O2SAT 99
[2025-03-15] MEDS ORDERED: enalaprilat 1.25mg/ml 2ml vial IV PRN (08:05)
[2025-03-15] MEDS ORDERED: ringers solution, lacted 1,000 ML IV SCH (08:05)
[2025-03-15] MEDS ORDERED: meperidine/PF 25mg/ml syringe IV PRN ×3 (08:05)
[2025-03-15] MEDS ORDERED: ondansetron/PF 4mg/2ml inj IV PRN (08:05)
[2025-03-15] MEDS ORDERED: morphine 4 MG/ML inj SYRINge IV PRN (08:05)
[2025-03-15] MEDS ORDERED: labetalol 20mg/4ml (5mg/ml) syringe IV PRN (08:05)
[2025-03-15 08:10] VITALS: BP 115/76; PULSE 66; RESP 15; O2SAT 100
[2025-03-15 08:20] VITALS: BP 109/74; PULSE 57; RESP 17; O2SAT 100
[2025-03-15 08:30] VITALS: BP 116/71; PULSE 57; RESP 14; O2SAT 100
--- NOTE | 2025-03-15 08:41 | RADIOLOGY REPORT ---
FLUOROSCOPY TIME: 1.6 seconds TECHNIQUE: Intraoperative radiographs of the left foot were obtained. COMPARISON: DI FOOT,LIMITED (AP/LAT) on DOS: 12/28/24 FINDINGS: Refer to intraoperative report for further evaluation. IMPRESSION: Refer to intraoperative report for further evaluation.
== END 2025-03-15 08:24 | disposition home or self-care (01) ==
LOC: PAS 05:35
PROVIDERS: ATTEND Podiatrist Foot & Ankle Surgery
DX: Z47.89 Encounter for other orthopedic aftercare (principal); M25.572 Pain in left ankle and joints of left foot; M19.072 Primary osteoarthritis, left ankle and foot; Z90.710 Acquired absence of both cervix and uterus; Z90.49 Acquired absence of other specified parts of digestive tract; Z98.890 Other specified postprocedural states; Z87.891 Personal history of nicotine dependence; Z91.040 Latex allergy status
CPT/HCPCS: 20694; 36415; 73620; 80047; 80053; 81001; 85025; A6223; J1100; J1885; J2003; J2250; J2405; J2704; J3010; J3490; J7030; J7120; Z7506; Z7512; 76000; A4215; A4618; A6449; A7000

== ENCOUNTER 2025-03-19 15:48 | Outpatient (CLI) | payer MEDICAID ==
[~2025-03-19 15:48] MED LIST changes: -ceFAZolin 2gm/dext,iso 50mL 50 ML IV ONE
--- NOTE | 2025-03-19 17:06 | RADIOLOGY REPORT ---
EXAM: MR MRI LOWER EXTREMITY LEFT ankle joint. INDICATION: PAIN IN LEFT ANKLE AND JOINTS OF LEFT FOOT TECHNIQUE: Multiplanar and multisequence MR imaging of the left ankle was performed in the absence of gadolinium contrast. COMPARISON: MR MRI LOWER EXTREMITY LEFT on DOS: 08/03/24, MR MRI LOWER EXTREMITY LEFT on DOS: 4 FINDINGS: On sagittal images achilles tendon is intact. Plantar fascia is intact. There is a small focal bony d efect posterior os calcis. Is a tract cortical surface to a ill-defined area of edema in the posterio r process of the os calcis. This contains a small subcentimeter bony nidus No joint effusion. Sinus tarsi is unremarkable. On coronal images there is thinning of the hyaline cartilage surfaces of the tibiotalar joint with fa int areas of altered signal intensity in the subchondral bone of the talar dome. Deltoid ligament int act. Spring ligament intact. Calcaneofibular ligament intact On transaxial images the distal syndesmotic ligaments are intact. The anterior posterior talofibular ligaments are intact although there is a mild sprain of the latter. Posterior tibialis flexor digito rum and flexor hallucis longus tendons intact. Peroneal tendons are intact. Postsurgical changes in the midfoot IMPRESSION: 1. There is a small poorly defined area of edema os calcis surrounding a central 4-5 mm nidus, not se en previous exam. Edema extends to the cortical surface near the insertion point plantar fascia. Dif ferential diagnosis includes an infectious process originating from subcutaneous tissues or possibly an inflammatory process such as gout or polyfibromatosis. Primary bone tumor such as osteoid osteoma could appear similarly although was not present prior exam. It is recommended that 3-phase bone scan considered to determine whether further treatment is necessary. 2. 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
== END 2025-03-19 23:59 | disposition home or self-care (01) ==
LOC: MRI02 15:48
PROVIDERS: ATTEND Podiatrist Foot & Ankle Surgery
DX: M25.572 Pain in left ankle and joints of left foot (principal); R60.0 Localized edema; M79.672 Pain in left foot
CPT/HCPCS: 73721

== ENCOUNTER 2025-05-04 13:22 | Outpatient (CLI) | payer MEDICAID ==
--- NOTE | 2025-05-04 14:39 | RADIOLOGY REPORT ---
CLINICAL INDICATION: PAIN IN R ANKLE COMPARISON: None. TECHNIQUE: Multiplanar, multisequence MRI of the right ankle was performed without intravenous contrast. Contrast: None INTERPRETATION: Bones: No evidence of acute fracture. No evidence of marrow replacing lesion. Alignment: Unremarkable. Ligaments: The anterior talofibular ligament is attenuated. The posterior talofibular ligament is intact. The calcaneofibular ligament is intact. The inferior tibiofibular ligaments are intact. The visualized portions of the deltoid and spring ligaments are intact. Tendons:The Achilles tendon is intact. The peroneal tendons are intact. The posterior tibialis, flexor hallucis longus and flexor digitorum longus tendons are intact. The dorsal extensor tendons are intact. Plantar Fascia: The medial cord of the plantar fascia is intact. Bursae: The retroachilles bursa is not fluid distended. The retrocalcaneal bursa is not fluid distended. Mass/Fluid: No significant joint effusion. No mass or fluid in the sinus tarsi. Muscles: Intrinsic muscles of the foot are unremarkable IMPRESSION: 1. Attenuated anterior talofibular ligament in the right ankle consistent with a prior partial tear or sprain. 2. Ankle joint effusion. 3. No tendon or bone abnormality in the right ankle.
--- NOTE | 2025-05-04 14:50 | RADIOLOGY REPORT ---
CLINICAL INDICATION: PAIN IN R FOOT COMPARISON: None. TECHNIQUE: Multiplanar, multisequence MRI of the right foot was performed without intravenous contrast. Contrast: None. INTERPRETATION: Bones: No evidence of acute fracture. There is no marrow replacing lesion. There is bone marrow edema in the medial and lateral cuneiform. Soft tissues: The Lisfranc ligament is intact. The medial and lateral collateral ligaments are intact at the metatarsophalangeal joints. The flexor and extensor tendons are intact. There is no plantar plate tear. There is no soft tissue mass or fluid collection. The intrinsic muscles of the foot are unremarkable. IMPRESSION: 1. Bone marrow edema in the medial and lateral cuneiform, nonspecific and may reflect contusions in the right midfoot. No fracture. 2. No soft tissue mass or injury in the visualized forefoot or midfoot.
== END 2025-05-04 23:59 | disposition home or self-care (01) ==
LOC: MRI02 13:22
PROVIDERS: ATTEND Podiatrist Foot & Ankle Surgery
DX: M25.571 Pain in right ankle and joints of right foot (principal); M79.671 Pain in right foot; M79.672 Pain in left foot; R60.0 Localized edema; M25.572 Pain in left ankle and joints of left foot
CPT/HCPCS: 73718; 73721

== ENCOUNTER 2025-05-31 14:05 | Outpatient (CLI) | payer MEDICAID ==
--- NOTE | 2025-05-31 15:46 | RADIOLOGY REPORT ---
PROCEDURE: MR MRI C SPINE INDICATION: CERVICALGIA, NECK PAIN EXAM DATE: 05/31/2025 02:34 PM COMPARISON: None TECHNIQUE: MRI cervical spine without intravenous contrast. FINDINGS: The cervical alignment is intact. The vertebral body heights and marrow signal are within normal limits. The visualized posterior fossa and craniocervical junction are intact. The intrinsic cervical cord signal appears intact. There is no prevertebral soft tissue swelling. The visualized paraspinal soft tissues are otherwise unremarkable. Moderate degenerative disc disease at C4-C5 and C5-C6 The following axial levels are detailed below: C2-C3: Unremarkeable. C3-C4: Unremarkable. C4-C5: Moderate diffuse posterior disc bulge indenting the anterior thecal sac and exerting mild mass effect on the cervical cord. Central canal is moderately narrowed measuring 7mm AP. N o significant foraminal area. C5-C6: Mild diffuse posterior disc bulge indenting the anterior thecal sac. Central canal is mildly narrowed measuring 9mm AP. No foraminal narrowing. C6-C7: Unremarkable. C7-T1: Unremarkable. IMPRESSION: Moderate degenerative disc disease at C4-C5 and C5-C6. Moderate spinal stenosis at C4-C5 and mild spinal stenosis at C5-C6.
== END 2025-05-31 23:59 | disposition home or self-care (01) ==
LOC: MRI02 14:05
PROVIDERS: ATTEND Chiropractor
DX: S06.0XAA Concussion with loss of consciousness status unknown, initial encounter (principal); M50.321 Other cervical disc degeneration at C4-C5 level; M50.322 Other cervical disc degeneration at C5-C6 level; M48.02 Spinal stenosis, cervical region; M99.01 Segmental and somatic dysfunction of cervical region; M99.02 Segmental and somatic dysfunction of thoracic region; M99.03 Segmental and somatic dysfunction of lumbar region; M99.9 Biomechanical lesion, unspecified; M54.6 Pain in thoracic spine; M54.50 Low back pain, unspecified; X58.XXXA Exposure to other specified factors, initial encounter; Y93.89 Activity, other specified; Y92.89 Other specified places as the place of occurrence of the external cause; Y99.8 Other external cause status
CPT/HCPCS: 72141